=== PATIENT | female | born 1950 | race Caucasian/White ===

== ENCOUNTER → 2016-11-07 | Outpatient (CLI) | payer SELFPAY ==
[~2016-11-07] MED LIST: ALEVE220 MG PO; AVALIDE 300/1 TABLET PO; LIPITOR40 MG PO; LOPRESSOR50 MG PO; NORVASC5 MG PO; OXAYDO5 MG PO; ZOLOFT100 MG PO
== END | disposition home or self-care (01) ==
LOC: CDC 09:29
DX: R94.31 Abnormal electrocardiogram [ECG] [EKG] (principal); C50.919 Malignant neoplasm of unspecified site of unspecified female breast
CPT/HCPCS: 93000

== ENCOUNTER 2016-11-22 06:33 | Day surgery (SDC) | payer SELFPAY ==
[~2016-11-22] VITALS: Ht 162.6 cm; Wt 83.9 kg
[~2016-11-22 06:33] MED LIST changes: -OXAYDO5 MG PO
[2016-11-22 07:18] VITALS: BP 139/75
[2016-11-22 15:52] VITALS: BP 146/78
[2016-11-22 19:53] VITALS: BP 122/62
[2016-11-22 23:29] VITALS: BP 124/58
[2016-11-23 07:57] VITALS: BP 149/71
[2016-11-23] MEDS ORDERED: OXAYDO5 MG PO (10:05)
[2016-11-23 11:30] VITALS: BP 138/68
== END 2016-11-23 12:42 | disposition home or self-care (01) ==
LOC: SDC 06:33 → NUC 08:30 → SDC 08:30 → 2SOUTH 11:30 → 2EAST 11:30
DX: C50.911 Malignant neoplasm of unspecified site of right female breast (principal); I10 Essential (primary) hypertension; K21.9 Gastro-esophageal reflux disease without esophagitis
CPT/HCPCS: 78195; 78999; 88305; 88307; 88331; 88332; A9541; G0378; J0131; J0330; J0690; J1100; J2250; J2405; J2765; J3010; J7040; S0020